=== PATIENT | female | born 1975 | race Caucasian/White ===

== ENCOUNTER 2016-11-28 09:31 | Emergency (ER) | payer BC, MEDICAID ==
[~2016-11-28] VITALS: Ht 162.6 cm; Wt 106.0 kg
[~2016-11-28 09:31] MED LIST: DOCU-144 PO; GEMF600T60 PO; HYDR-3011 PO; TRAM50TA2 PO
[2016-11-28 09:51] VITALS: Ht 162.6 cm; Wt 106.0 kg
[2016-11-28 10:27] LABS: URINE BLOOD (Dip) POC 1+ (NEGATIVE)
[2016-11-28] MEDS ORDERED: IBUPROFEN 600 MG TAB PO ONE (10:30)
--- NOTE | 2016-11-28 10:56 | ERD ---
ER Documentation Chief Complaint Date/Time DATE: 11/28/16 TIME: 10:48 Chief Complaint PELVIC PAIN & DYSURIA X3 DAYS HPI Pleasant 41-year-old female presenting to emergency department with complains of abdominal pain. The pain is described as sharp pressure and is 8/10 in intensity. Pain is located right lower quadrant, epigastric and nonradiating. onset was 3 days ago, symptoms have been worsening since . Aggravating factors : Activity and rest. Alleviating factors: None. Associated symptoms: Back pain , with history of back surgery with pins 3 years ago, loose stools 3 weeks. Patient reports having loose bowel movements after eating and drinking. The Patient denies dysuria, vomiting, hematuria. Patient reports possible , last menstrual period approximately October 27, 2016. Patient denies vaginal discharge, is in a monogamous relationship with her boyfriend. 1 miscarriage ROS All systems reviewed and are negative except as per history of present illness. Medications Home Meds Active Scripts Docusate Sodium* (Colace*) 100 Mg Capsule, 100 MG PO BID, #60 CAP Prov:LIZA MOSELEY MD 11/06/14 Reported Medications Tramadol HCl (Tramadol HCl) 50 Mg Tab, 50 MG PO Q8H Y for PAIN, TAB 11/01/14 Hydroxyzine Hcl* (Hydroxyzine Hcl*) 25 Mg Tablet, 25 MG PO QID, TAB 08/14/14 Gemfibrozil* (Gemfibrozil*) 600 Mg Tablet, 600 MG PO BID, TAB 05/11/14 Allergies Allergies: Coded Allergies: hydrocodone (Verified Allergy, Intermediate, 11/28/16) HIVES PMhx/Soc Medical and Surgical Hx: pt denies Medical Hx History of Surgery: Yes (this admission hernia repair) Anesthesia Reaction: No Hx Neurological Disorder: No Hx Respiratory Disorders: No Hx Cardiac Disorders: No Hx Psychiatric Problems: No Hx Miscellaneous Medical Probl: Yes (chronic back pain, hyperlipidemia, hand sx , back sx) Hx Alcohol Use: Yes (SOMETIMES,) Hx Substance Use: Yes (marijuana) Hx Tobacco Use: Yes Smoking Status: Never smoker Physical Exam Vitals Vital Signs Date Time Temp Pulse Resp B/P Pulse Ox O2 Delivery O2 Flow Rate FiO2 11/28/16 13:00 98.0 60 16 118/73 100 Room Air 3/3/17 09:51 99.3 62 16 129/75 99 Vitals stable, nursing notes reviewed Physical Exam Const: No acute distress Head: Eyes: ENT: Neck: . Resp: Clear to auscultation bilaterally Cardio: Regular rate and rhythm, no murmurs Abd: Abdomen soft, symmetric, obese, with stretch traylor, no scars. Bowel sounds active 4 quadrants, left lower quadrant tenderness to palpation, no CVA tenderness. McBurney's point nontender, negative Hernandez sign Skin: No petechiae or rashes Back: No midline or flank tenderness Ext: Neur: Awake and alert Psych: Normal Mood and Affect Result Diagram: 11/28/16 1135 11/28/16 1135 Results 24 hrs Laboratory Tests Test 11/28/16 10:30 11/28/16 11:35 Bedside Urine Blood 1+ Bedside Urine Glucose (UA) Negative Bedside Urine Ketones (LAB) Negative Bedside Urine Leukocyte Esterase (L Negative Bedside Urine Nitrite (LAB) Negative Bedside Urine Protein (LAB) 1+ Bedside Urine pH (LAB) 5.5 Alanine Aminotransferase (ALT/SGPT) 27IU/L Albumin 4.5g/dl Albumin/Globulin Ratio 1.15 Alkaline Phosphatase 62IU/L Anion Gap 18 Aspartate Amino Transf (AST/SGOT) 18IU/L Basophils # 0.110^3/ul Basophils % 0.5% Blood Urea Nitrogen 11mg/dl Calcium Level 9.4mg/dl Carbon Dioxide Level 25mmol/L Chloride Level 100mmol/L Creatinine 0.72mg/dl Direct Bilirubin 0.00mg/dl Eosinophils # 0.110^3/ul Eosinophils % 1.0% Globulin 3.90g/dl Glucose Level 93mg/dl Hematocrit 42.1% Hemoglobin 13.8g/dl Indirect Bilirubin 0.6mg/dl Lipase 74U/L Lymphocytes # 3.110^3/ul Lymphocytes % 30.4% Mean Corpuscular Hemoglobin 26.5pg Mean Corpuscular Hemoglobin Concent 32.8g/dl Mean Corpuscular Volume 80.8fl Mean Platelet Volume 9.7fl Monocytes # 0.610^3/ul Monocytes % 6.1% Neutrophils # 6.310^3/ul Neutrophils % 61.8% Nucleated Red Blood Cells # 0.010^3/ul Nucleated Red Blood Cells % 0.0/100WBC Platelet Count 82334^3/UL Potassium Level 3.8mmol/L Red Blood Count 5.2110^6/ul Red Cell Distribution Width 14.6% Sodium Level 139mmol/L Total Bilirubin 0.6mg/dl Total Protein 8.4g/dl White Blood Count 10.210^3/ul Current Medications Medications (Trade) Dose Ordered Sig/Arcelia Route PRN Reason Start Time Stop Time Status Last Admin Dose Admin Ibuprofen (Motrin) 600 mg ONCE ONCE PO 11/28/16 10:30 11/28/16 10:56 DC Acetaminophen (Tylenol Tab) 650 mg ONCE ONCE PO 11/28/16 11:00 11/28/16 11:01 DC 11/28/16 11:02 Interpretation text CBC shows no evidence of hemorrhage or infection Chemistry shows no evidence of significant electrolyte abnormalities or renal insufficiency Liver function tests shows no evidence of acute biliary or hepatic dysfunction Lipase shows no evidence of acute pancreatitis Urine positive for microscopic hematuria in protein, negative for leukocytes or nitrates. Urine positive for evidence of . Procedures/MDM PROCEDURE: US OB. CLINICAL INDICATION: Abdominal pain TECHNIQUE: Transabdominal and endovaginal imaging of the uterus is available for review COMPARISON: None available FINDINGS: There is a single intrauterine with a mean sac diameter of 0.6 cm, giving an estimated gestational age of 5 weeks 1 day by ultrasound criteria. No pole is detected. No subchorionic hemorrhage is identified. The ovaries are unremarkable. IMPRESSION: Single intrauterine with an estimated gestational age of 5 weeks 1 day by ultrasound criteria. No pole is identified. This may be secondary to early dates. Repeat pelvic ultrasound is recommended in 1- 2 weeks. RPTAT: HH .Niyah Alarcon MD, MD Date Time Electronically viewed and signed by .Niyah Alarcon MD, MD on 11/28/2016 12 :20 Pleasant 41-year-old female presents to emergency department today with low abdominal pain, epigastric pain. Patient thinks she may be . Has not done any home test, reports her last menstrual period was the ending of September 2016. Urine positive. Urinalysis negative for evidence of infection. CBC and CMP are essentially normal. Ultrasound shows single intrauterine estimated gestational age of 5 weeks. No pole was seen at this time possibly related to early gestational age and repeat ultrasound in 1-2 weeks was suggested. I feel the patient is stable for discharge at this time. And should follow-up with gynecology. I have discussed results, examination findings, the treatment plan with the patient prior to discharge. Indications for emergent reevaluation such as vaginal bleeding or worsening of abdominal pain, irretractable nausea/vomiting. Dysuria., side effects of medication were also discussed. All questions were answered. Patient verbalizes understanding and agrees with plan of care. Departure Condition: Joel KENISHAANDREINA VALENTIN Nov 28, 2016 10:56
[2016-11-28] MEDS ORDERED: ACETAMINOPHEN 325 MG TAB PO ONE (11:00)
[2016-11-28 11:50] LABS: ADD SCAN DIFF NO
[2016-11-28 11:54] LABS: BASOPHIL # 0.1 10^3/ul (0.0-0.1); BASOPHILS % 0.5 % (0.0-2.0); EOSINOPHILS # 0.1 10^3/ul (0.0-0.5); HEMATOCRIT 42.1 % (37.0-47.0); HEMOGLOBIN 13.8 g/dl (12.0-16.0); LYMPHOCYTES # 3.1 10^3/ul (0.8-2.9); LYMPHOCYTES % 30.4 % (15.0-51.0); MEAN CORPUSCULAR HEMOGLOBIN 26.5 pg (29.0-33.0); MEAN CORPUSCULAR HGB CONC 32.8 g/dl (32.0-37.0); MEAN CORPUSCULAR VOLUME 80.8 fl (82.0-101.0); MEAN PLATELET VOLUME 9.7 fl (7.4-10.4); MONOCYTE # 0.6 10^3/ul (0.3-0.9); MONOCYTES % 6.1 % (0.0-11.0); NEUTROPHIL # 6.3 10^3/ul (1.6-7.5); NEUTROPHILS % 61.8 % (39.0-77.0); PLATELET COUNT 522 10^3/UL (140-415); RED BLOOD COUNT 5.21 10^6/ul (4.20-5.40); RED CELL DISTRIBUTION WIDTH 14.6 % (11.5-14.5); WHITE BLOOD COUNT 10.2 10^3/ul (4.8-10.8)
[2016-11-28 12:02] LABS: ALBUMIN 4.5 g/dl (3.3-4.9)
[2016-11-28 12:03] LABS: POTASSIUM 3.8 mmol/L (3.5-5.1)
[2016-11-28 12:05] LABS: BILIRUBIN,INDIRECT 0.6 mg/dl (0-1.1); BILIRUBIN,TOTAL 0.6 mg/dl (0.2-1.3); CREATININE 0.72 mg/dl (0.44-1.00)
[2016-11-28 12:06] LABS: ALBUMIN/GLOBULIN RATIO 1.15; CALCIUM 9.4 mg/dl (8.4-10.2); TOTAL PROTEIN 8.4 g/dl (6.1-8.1)
--- NOTE | 2016-11-28 12:20 | RADRPT ---
PROCEDURE: US OB. CLINICAL INDICATION: Abdominal pain TECHNIQUE: Transabdominal and endovaginal imaging of the uterus is available for review COMPARISON: None available FINDINGS: There is a single intrauterine with a mean sac diameter of 0.6 cm, giving an estimated ges tational age of 5 weeks 1 day by ultrasound criteria. No pole is detected. No subchorionic h emorrhage is identified. The ovaries are unremarkable. IMPRESSION: Single intrauterine with an estimated gestational age of 5 weeks 1 day by ultrasound crite karen. No pole is identified. This may be secondary to early dates. Repeat pelvic ultrasound i s recommended in 1- 2 weeks. RPTAT: HH .Niyah Alarcon MD, MD Date Time Electronically viewed and signed by .Niyah Alarcon MD, on 11/28/2016 12:20 .G/
[2016-11-28 13:00] VITALS: BP 118/73; PULSE 60; RESP 16; TEMP 98
== END 2016-11-28 13:02 | disposition home or self-care (01) ==
LOC: FTE 09:31
DX: R10.13 Epigastric pain (principal); F17.210 Nicotine dependence, cigarettes, uncomplicated; Z33.1 Pregnant state, incidental
CPT/HCPCS: 36415; 76801; 76817; 80053; 81003; 83690; 85025; 86900; 86901; Z7502; Z7610